=== PATIENT | male | born 1990 | race Caucasian/White ===

== ENCOUNTER 2024-08-28 11:32 | Emergency (ER) | payer OTHER ==
[2024-08-28] MEDS ORDERED: Sodium Chloride 0.9% 2.5 ML Syringe FLUSH PRN (11:40)
[2024-08-28] MEDS ORDERED: Sodium Chloride 0.9% 10 ML Syringe FLUSH PRN (11:40)
[2024-08-28 11:45] LABS: BASOPHILS ABSOLUTE AUTO 0.03 K/uL (0.00-0.20); BASOPHILS PERCENT AUTO 0.6 % (0.0-1.0); EOSINOPHILS ABSOLUTE AUTO 0.05 K/uL (0.00-0.45); EOSINOPHILS PERCENT AUTO 0.9 % (0.0-6.0); HEMOGLOBIN 16.9 g/dL (14.0-18.0); IMMATURE GRAN ABSOLUTE AUTO 0.02 K/uL (0.00-0.05); IMMATURE GRAN PERCENT AUTO 0.4 % (0.0-0.4); LYMPHOCYTES PERCENT AUTO 39.4 % (24.0-44.0); MEAN CORPUSCULAR HEMOGLOBIN 31.1 pg (28.0-32.0); MEAN CORPUSCULAR HGB CONC 35.2 g/dL (32.0-36.0); MEAN CORPUSCULAR VOLUME 88.4 fL (83.0-99.0); MEAN PLATELET VOLUME 10.4 fL (9.4-12.4); MONOCYTES ABSOLUTE AUTO 0.31 K/uL (0.00-0.80); MONOCYTES PERCENT AUTO 5.8 % (0.0-8.0); NEUTROPHILS ABSOLUTE AUTO 2.82 K/uL (1.80-7.70); NEUTROPHILS PERCENT AUTO 52.9 % (41.0-71.0); PLATELET COUNT,PLT 222 K/uL (150-400); RED BLOOD CELL COUNT 5.43 M/uL (4.52-5.90); WHITE BLOOD CELL COUNT,WBC 5.33 K/uL (3.9-11.3)
[2024-08-28] MEDS: Aspirin 81 MG Tab.Chew PO ONE (11:45)
[2024-08-28 12:22] LABS: A/G RATIO 1.2 (0.9-1.6); ALBUMIN 4.4 g/dL (3.4-5.0); BILIRUBIN TOTAL 0.7 mg/dL (0.2-1.0); CALCIUM 9.5 mg/dL (8.5-10.1); CARBON DIOXIDE,CO2 29.2 mmol/L (21.0-32.0); EST CRCL DRUG DOSING (CG) 108.49 mL/min; POTASSIUM,K 3.9 mmol/L (3.5-5.1)
[2024-08-28 12:32] LABS: CORONAVIRUS COVID-19 NAA NEGATIVE (NEGATIVE); INFLUENZA A NAA NEGATIVE (NEGATIVE); INFLUENZA B NAA NEGATIVE (NEGATIVE)
== END 2024-08-28 12:58 | disposition home or self-care (01) ==
LOC: MW.ED 11:32
DX: R07.9 Chest pain, unspecified (principal); F17.210 Nicotine dependence, cigarettes, uncomplicated; Z88.0 Allergy status to penicillin; Z75.8 Other problems related to medical facilities and other health care
CPT/HCPCS: 0240U; 36415; 71045; 80053; 84484; 85025; 85379; 93005; 99285; A9270